=== PATIENT | female | born 1965 | race Caucasian/White ===

== ENCOUNTER 2018-03-03 09:52 | Emergency (ER) | payer OTHER ==
[~2018-03-03] VITALS: Ht 152.4 cm; Wt 130.6 kg
[2018-03-03] MEDS ORDERED: VISTARIL 25 MG25 M1 PO (10:04)
[2018-03-03] MEDS ORDERED: QUINAPRIL-HCTZ1 EAC2 PO (10:04)
[2018-03-03] MEDS ORDERED: FLEXERIL PO (10:04)
[2018-03-03 10:42] LABS: URINE BILIRUBIN NEGATIVE (Negative); URINE BLOOD 1+ (Negative); URINE CLARITY CLEAR; URINE COLOR YELLOW; URINE GLUCOSE-RANDOM NEGATIVE (Negative); URINE KETONES NEGATIVE (Negative); URINE LEUKOCYTES-REFLEX NEGATIVE (Negative); URINE NITRITE-REFLEX NEGATIVE (Negative); URINE PROTEIN NEGATIVE (Negative); URINE SPECIFIC GRAVITY <= 1.005 (1.005-1.030); URINE UROBILINOGEN 0.2 E.U./dl (0.2-1.0)
[2018-03-03 10:45] LABS: HEMATOCRIT 43.4 % (37.0-47.0); HEMOGLOBIN 14.7 gm/dL (12.0-15.0); MCH 29.4 pg (26.0-34.0); MCHC 33.9 g/dL (28.0-37.0); MCV 86.9 fL (80.0-100.0); MPV 8.7 fl. (7.2-11.1); NUCLEATED RBCS 0 /100WBC; PLATELET COUNT* 249 thou/uL (150-400); RDW-CV 14.9 % (10.5-14.5); WBC 10.6 thou/uL (4.0-11.0)
[2018-03-03 10:53] LABS: BACTERIA-REFLEX 1-9 Few /HPF (None Seen); CASTS None Seen /LPF (None Seen); CRYSTALS None Seen /LPF (None Seen); MUCUS 0-3 Light strn/LPF (None Seen); SQUAMOUS 4-10 Moderate /LPF (0-3); URINE RBC 3-10 Few /HPF (0-2); URINE WBC-REFLEX 0-5 Rare /HPF (0-5)
[2018-03-03 11:02] LABS: ANION GAP 6 mmol/L (7-16); BUN 12 mg/dL (7-18); CALCIUM 8.7 mg/dL (8.5-10.1); CHLORIDE 101 mmol/L (98-107); CO2 32 mmol/L (21-32); CREATININE 0.9 mg/dL (0.6-1.3); GLUCOSE 95 mg/dL (70-99); POTASSIUM 3.1 mmol/L (3.5-5.1); SODIUM 139 mmol/L (136-145)
[2018-03-03 11:07] LABS: ABSOLUTE EOSINOPHILS 0.3 thou/uL (0.0-0.7); ABSOLUTE LYMPHOCYTES 3.1 thou/uL (0.8-5.3); ABSOLUTE MONOCYTES 0.6 thou/uL (0.0-1.2); ABSOLUTE NEUTROPHILS 6.6 thou/uL (1.6-8.1); PLATELET ESTIMATE ADEQUATE
[2018-03-03 11:09] LABS: ALBUMIN 3.4 g/dL (3.4-5.0); ALKALINE PHOSPHATASE 77 U/L (46-116); SGOT 16 U/L (15-37); SGPT 19 U/L (30-65); TOTAL BILIRUBIN 0.5 mg/dL (<0.1-1.0); TOTAL PROTEIN 7.6 g/dL (6.4-8.2); TROPONIN-I LEVEL <0.06 ng/mL (<0.06)
[2018-03-03] MEDS ORDERED: KEFLEX500 M1 PO (13:26)
[2018-03-03] MEDS ORDERED: ANTIVERT25 MG PO (13:26)
[2018-03-03 13:42] VITALS: BP 137/87
--- NOTE | 2018-03-03 14:37 | EKG ---
[place] [address] ELECTROCARDIOGRAM REPORT Name: TOSHIA MOORE Room: [facility]#: [id number] Admission: 03/03/18 Attend Phys: Discharge: 03/03/18 Date of : 63 Report #: [id number] THIS REPORT FOR: //name// [facility] ED Test Date: 2018-03-03 Test Time: 10:28:35 Pat Name: TOSHIA MOORE Department: Room: Gender: F Senior [employer] Developer: Maryana MCMANUS : 1965 Requested By: Lluvia Lucas Order Number: [id number] MD: Kin Ogden Measurements Intervals [place] Rate: 83 P: 20 NE: 195 QRS: -25 QRSD: 105 T: 4 QT: 381 QTc: 448 Interpretive Statements Sinus rhythm Probable left atrial enlargement Inferior infarct, old Anterior infarct, old No previous ECG available for comparison Electronically Signed On 03-03-2018 14:37:08 CDT by Kin Ogden [email or web address] <ELECTRONICALLY SIGNED> By: Kin Ogden MD, [facility] 03/03/18 1437 D: 09/1027 27 Kin Ogden MD, FACC /EPI
== END 2018-03-03 13:43 | disposition home or self-care (01) ==
LOC: M.ERS 09:52
PROVIDERS: Physician Assistant Surgical
DX: R42 Dizziness and giddiness (principal); N39.0 Urinary tract infection, site not specified; I10 Essential (primary) hypertension; Z88.6 Allergy status to analgesic agent; Z88.5 Allergy status to narcotic agent; Z90.49 Acquired absence of other specified parts of digestive tract